=== PATIENT | male | born 1995 | race Caucasian/White ===

== ENCOUNTER 2023-04-16 12:05 | Outpatient (REF) | payer BC, SELFPAY ==
[2023-04-16 20:42] LABS: Abs Immature Grans 0.02 10^3/uL (0.0-0.06); HCT 47.2 % (40.0-50.0); HGB 15.9 g/dL (13.5-17.5); MCH 31.2 pg (27.0-33.0); MCHC 33.7 % (32.0-36.0); MCV 93 fL (80-95); Platelet Count 324 10^3/uL (130-400); RBC 5.09 10^6/uL (4.36-5.78); RDW 11.5 % (11.8-14.1); RDW-SD 40.2 fL; WBC 7.24 10^3/uL (4.4-10.8)
[2023-04-16 20:53] LABS: Absolute Lymphocyte Count 2.46 10^3/uL (1.2-3.4); Absolute Neutrophil Count 4.27 10^3/uL (1.2-6.7); Atypical Lymphocytes % 4
[2023-04-16 20:54] LABS: Absolute Monocyte Count 0.51 10^3/uL (0.1-0.8); Diff Comment Manual Differential; RBC Morphology Normal
[2023-04-18 11:08] LABS: Lyme Ab w Rflx to Lyme Confirm Negative (Negative)
[2023-04-19 23:00] LABS: Anaplasma phagocytophilum Negative (Negative); B. miyamotoi PCR Negative (Negative); Babesia divergens/MO-1 Negative (Negative); Babesia duncani Negative (Negative); Babesia microti Negative (Negative); Ehrlichia chaffeensis Negative (Negative); Ehrlichia ewingii/canis Negative (Negative); Ehrlichia muris eauclairensis Negative (Negative)
== END 2023-04-16 12:06 | disposition home or self-care (01) ==
LOC: LBN 12:05
PROVIDERS: Visit Provider Physician Assistant
DX: R51.9 Headache, unspecified (principal); R50.9 Fever, unspecified; R53.83 Other fatigue; M79.18 Myalgia, other site
CPT/HCPCS: 87798; 85025; 86618